=== PATIENT | female | born 1960 | race Caucasian/White ===

== ENCOUNTER 2017-03-30 16:12 | Emergency (ER) | payer MEDICAID, OTHER ==
[~2017-03-30] VITALS: Ht 162.6 cm; Wt 81.6 kg
[~2017-03-30 16:12] MED LIST: AZITHROMYCIN250 MG ORAL; PREDNISONE20 MG ORAL; PROMETHAZI6.25 MG/1 ORAL
[2017-03-30] MEDS ORDERED: IBUPROFEN600 MG ORAL (16:33)
[2017-03-30] MEDS ORDERED: PREDNISONE20 MG ORAL (16:33)
[2017-03-30 16:40] VITALS: BP 148/97
[2017-03-30 16:46] VITALS: BP 146/91
--- NOTE | 2017-03-30 19:03 | Emergency Room Report ---
History of Present Illness General Chief Complaint: Upper Respiratory Illness Source: Patient Present Illness HPI 56-year-old female presents to ED complaining of cough and congestive symptoms for last 1 week. Patient states she was seen by her PMD and was prescribed cough medicine and antibiotics. States that she's been taking the medication with some relief but symptoms persist. Feels congested with a headache. Throbbing, 5/10, nonradiating. Denies photophobia, blurry vision, nausea or vomiting. Denies earache or sore throat. Notes cough which is dry. Denies phlegm. History of asthma. No other aggravating relieving factors. Denies any other associated symptom Allergies: Coded Allergies: No Known Allergies (Unverified , 11/20/14) Patient History Past Medical History: asthma Past Surgical History: none Pertinent Family History: none Social History: Denies: alcohol use, drug use, smoking Now: No Immunizations: UTD Reviewed Nursing Documentation: PMH: Agreed, PSxH: Agreed Nursing Documentation-PMH Past Medical History: No History, Except For Hx Asthma: Yes Review of Systems All Other Systems: negative except mentioned in HPI Physical Exam Vital Signs Date Time Temp Pulse Resp B/P Pulse Ox O2 Delivery O2 Flow Rate FiO2 03/30/17 16:19 98.1 101 20 148/97 96 Room Air Sp02 EP Interpretation: reviewed, normal General Appearance: no apparent distress, alert, GCS 15, non-toxic Head: normocephalic, atraumatic Eyes: bilateral eye PERRL, bilateral eye normal inspection ENT: hearing grossly normal, normal pharynx, no angioedema, normal voice Neck: full range of motion, supple/symm/no masses Respiratory: chest non-tender, lungs clear, normal breath sounds, speaking full sentences Cardiovascular #1: regular rate, rhythm, no edema Cardiovascular #2: 2+ carotid (R), 2+ carotid (L), 2+ radial (R), 2+ radial (L) , 2+ dorsalis pedis (R), 2+ dorsalis pedis (L) Gastrointestinal: normal bowel sounds, non tender, soft, non-distended, no guarding, no rebound Rectal: deferred Genitourinary: normal inspection, no CVA tenderness Musculoskeletal: back normal, gait/station normal, normal range of motion, non- tender Neurologic: alert, oriented x3, responsive, motor strength/tone normal, sensory intact, speech normal Psychiatric: judgement/insight normal, memory normal, mood/affect normal, no suicidal/homicidal ideation Reflexes: 3+ bicep (R), 3+ bicep (L), 3+ tricep (R), 3+ tricep (L), 3+ knee (R) , 3+ knee (L) Skin: normal color, no rash, warm/dry, well hydrated Lymphatic: no adenopathy Medical Decision Making Diagnostic Impression: Primary Impression: Upper respiratory infection Qualified Codes: J06.9 - Acute upper respiratory infection, unspecified ER Course Hospital Course 56-year-old female presents to ED complaining of cough, congestive symptoms x 1 week Differential diagnoses include: URI, pharyngitis, otitis media, asthma Clinical course Patient placed on stretcher. After initial history, physical exam reveals a young female in no acute distress. Bilateral TM unremarkable. No pharyngeal erythema. No tonsillar exudates. No lymphadenopathy. lungs clear. abdomen soft. Clinical findings consistent with URI. I did not believe patient requires antibiotics however she was already prescribed antibiotics by her PMD. Nevertheless I tell patient complete her prescription as directed. I will add prescription for steroids and Motrin Diagnosis - URI Stable and discharged home. Continue previously prescribed medications. Given prescriptions for prednisone and Motrin. Instructed to followup with PMD. Return to ED if symptoms recur or worsen Last Vital Signs Date Time Temp Pulse Resp B/P Pulse Ox O2 Delivery O2 Flow Rate FiO2 03/30/17 16:46 98.1 98 20 146/91 96 Room Air Status: improved Disposition: HOME, SELF-CARE Condition: Stable Scripts Ibuprofen* (MOTRIN*) 600 Mg Tablet 600 MG ORAL Q8H Y for For Pain, #30 TAB 0 Refills Prov: NOHEMI BROOKS M.D. 03/30/17 Prednisone* (PREDNISONE*) 20 Mg Tablet 40 MG ORAL DAILY, #10 TAB Prov: NOHEMI BROOKS M.D. 03/30/17 Referrals: MARK LOZOYA PLN,REFERRI (PCP) Patient Instructions: Upper Respiratory Infection, Adult NOHEMI BROOKS M.D. March 30, 2017 19:03
== END 2017-03-30 16:49 | disposition home or self-care (01) ==
LOC: EMR 16:40
DX: J06.9 Acute upper respiratory infection, unspecified (principal); J45.909 Unspecified asthma, uncomplicated
CPT/HCPCS: 99284

== ENCOUNTER 2019-01-03 10:21 | Emergency (ER) | payer OTHER ==
[~2019-01-03] VITALS: Ht 162.6 cm; Wt 95.7 kg
[~2019-01-03 10:21] MED LIST changes: +IBUPROFEN600 MG ORAL
[2019-01-03 10:31] VITALS: BP 151/84
--- NOTE | 2019-01-03 10:31 | NUR ---
ED Nurse Note: Pt walked in to ER c/o coughing for 3 days with white and thick phlem and painful to cough due to coughing persistently 8/10. pt Amharic speaker but is able to carry simple conversation. pt aao x4 and calm. skin clean and intact.
[2019-01-03] MEDS ORDERED: Albuterol/Ipratropium 3ml neb HHN ONE (11:30)
--- NOTE | 2019-01-03 12:10 | Emergency Room Report ---
History of Present Illness General Chief Complaint: Upper Respiratory Illness Source: Patient Present Illness HPI Patient states that for the past 5 days she has had cough and shortness of breath. She has had some sputum production. She did see her primary care physician and has been using an albuterol inhaler, Medrol Dosepak and has been on antibiotics. She states that her symptoms continue. She states that her cough is bothering her the most. She states her cough is recurrent and causing her to not be up to sleep at night. She denies fever or chills. She denies nausea or vomiting. She denies headache or neck pain. She denies chest pain. She has no other complaints. Allergies: Coded Allergies: No Known Allergies (Unverified , 11/20/14) Patient History Past Medical History: see triage record, HTN, asthma Past Surgical History: Social History: Denies: smoking, alcohol use, drug use Last Menstrual Period: 2005 Now: No : 5 Para: 4 Reviewed Nursing Documentation: PMH: Agreed; PSxH: Agreed Nursing Documentation-PMH Past Medical History: No History, Except For Hx Hypertension: Yes Hx Asthma: Yes Review of Systems All Other Systems: negative except mentioned in HPI Physical Exam Vital Signs Date Time Temp Pulse Resp B/P (MAP) Pulse Ox O2 Delivery O2 Flow Rate FiO2 01/03/19 10:26 98.2 86 18 151/84 95 Room Air Sp02 EP Interpretation: reviewed, normal General Appearance: no apparent distress, alert, GCS 15, non-toxic Head: normocephalic, atraumatic Eyes: bilateral eye normal inspection, bilateral eye PERRL ENT: hearing grossly normal, normal pharynx, no angioedema, normal voice Neck: full range of motion, supple/symm/no masses Respiratory: chest non-tender, no respiratory distress, no retraction, no accessory muscle use, speaking full sentences, wheezing, expiration Cardiovascular #1: regular rate, rhythm, no edema Gastrointestinal: normal bowel sounds, non tender, soft, non-distended, no guarding, no rebound Rectal: deferred Musculoskeletal: back normal, gait/station normal, normal range of motion, non- tender Neurologic: alert, oriented x3, responsive, motor strength/tone normal, sensory intact, speech normal Psychiatric: judgement/insight normal, memory normal, mood/affect normal, no suicidal/homicidal ideation Skin: normal color, no rash, warm/dry, well hydrated Medical Decision Making Diagnostic Impression: Primary Impression: Upper respiratory infection Additional Impression: Asthma exacerbation ER Course This patient has a clinical presentation consistent with asthma exacerbation and URI. Patient has a history of asthma and has wheezing on physical exam. The patient was given albuterol and Atrovent nebulizer treatments. The patient was also given prednisone orally. The patient had significant improvement in subjective shortness of breath. The patient's lung exam improved significantly. I will change the patient's Medrol Dosepak to high-dose prednisone for the next 4 days. Patient referred he finished a course of antibiotics today. The patient has an albuterol inhaler and the medication for her nebulizer machine. The patient states she plans on flying a nebulizer machine today. The patient was given close return precautions and followup instructions. Last Vital Signs Date Time Temp Pulse Resp B/P (MAP) Pulse Ox O2 Delivery O2 Flow Rate FiO2 01/03/19 11:47 88 18 96 Room Air 01/03/19 10:31 98.2 151/84 Status: improved Disposition: HOME, SELF-CARE Condition: Improved Referrals: NON PHYSICIAN (PCP) Loly Villegas DO Jan 03, 2019 12:10
[2019-01-03] MEDS ORDERED: PREDNISONE20 MG ORAL (12:11)
[2019-01-03] MEDS ORDERED: ROBITUSSIN COU237 M2 PO (12:11)
[2019-01-03 12:21] VITALS: BP 144/84
--- NOTE | 2019-01-03 12:22 | NUR ---
ER DISCHARGE NOTE: Patient is cleared to be discharged per ERMD, pt is aox4, on room air, with stable vital signs. pt was given dc and instructions and prescriptions were sent to [facility] dasilva and she was informed, pt was able to verbalize understanding, pt id band removed. pt is able to ambulate with steady gait. pt took all belongings.
== END 2019-01-03 12:23 | disposition home or self-care (01) ==
LOC: EMR 11:15
DX: J06.9 Acute upper respiratory infection, unspecified (principal); J45.901 Unspecified asthma with (acute) exacerbation; I10 Essential (primary) hypertension
CPT/HCPCS: 94640; 99284; J7512; J7620